=== PATIENT | female | born 1990 | race Two or more races ===

== ENCOUNTER 2019-09-29 11:06 | Emergency (ER) | payer OTHER ==
[2019-09-29 11:21] VITALS: BMI 30.4
[2019-09-29] MEDS ORDERED: SODIUM CHLORIDE 1,000 ML IV STA (11:21)
[2019-09-29] MEDS ORDERED: KETOROLAC TROMETHAMINE 30 MG/1 ML VIAL IVPUSH ONE (11:22)
--- NOTE | 2019-09-29 11:25 | PDOC ---
History of Present Illness - General Chief Complaint: Pain Stated Complaint: BACK PAIN AND PELVIC PAIN FOR 1 WEEK Time Seen by Provider: 09/29/19 11:09 History Source: Patient Exam Limitations: No Limitations - History of Present Illness Travel History: No Initial Comments: 09/29/19 11:22 29 y/o female with lower back and pelvic pain. Patient states pain mostly on let and wraps to the front for last week. No fever, chills, dysuria, hematuria, N/V/d/C. Has been taking OTC medication with no relief. No vaginal discharge. Hurts more with movement. No fall or trauma or lifting. Denies SOB or chest pain. Denies . 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 Tested negative for COVID recently. Patient also takes Iron pills for anemia and stopped recently thinking pain due to her iron pills. 09/29/19 13:38 Past History - Medical History Allergies/Adverse Reactions: Allergies Allergy/AdvReac Type Severity Reaction Status Date / Time No Known Allergies Allergy Unverified 09/29/19 11:09 Home Medications: Ambulatory Orders levoFLOXacin [Levaquin -] 500 mg PO DAILY #7 tablet 09/29/19 Review of Systems - Review of Systems Able to Perform ROS?: Yes Is the patient limited Slovenian proficient: No Constitutional: No: Chills, Fever Respiratory: No: Cough, Shortness of Breath Cardiac (ROS): No: Chest Pain ABD/GI: No: Nausea, Vomiting : Yes: Flank Pain. No: Burning, Dysuria, Hematuria Musculoskeletal: Yes: Back Pain Neurological: No: Headache All Other Systems: Reviewed and Negative *Physical Exam - Physical Exam General Appearance: Yes: Nourished, Appropriately Dressed, Mild Distress. No: Apparent Distress HEENT: positive: EOMI, BHARATI, Normal ENT Inspection, Normal Voice, Pharynx Normal Neck: positive: Trachea midline, Normal Thyroid, Supple. negative: Tender, Rigid Respiratory/Chest: positive: Lungs Clear, Normal Breath Sounds. negative: Chest Tender Cardiovascular: positive: Regular Rhythm, Regular Rate, S1, S2. negative: Edema, JVD, Murmur Vascular Pulses: Femoral (R): 4+, Femoral (L): 4+, Carotid (R): 4+, Carotid (L): 4+, Dorsalis-Pedis (R): 4+, Doralis-Pedis (L): 4+ Female Pelvic Exam: positive: other (pelvic exam refused by pt, risks and benefits discussed with pt) Gastrointestinal/Abdominal: positive: Normal Bowel Sounds, Tender (LLQ tendernes s, no RLQ tenderness +BS, no RUQ or LUQ tenderness) Lymphatic: negative: Adenopathy, Tenderness, Other Musculoskeletal: positive: Normal Inspection. 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 NML intact, Fully Oriented, Alert, Normal Mood/Affect (Neg SLR test b/l strength 5+/5 b/l in LE, no focal deficits noted), Normal Response, Motor Strength 5/5 ED Treatment Course - LABORATORY CBC & Chemistry Diagram: 09/29/19 11:43 09/29/19 11:22 ED Progress Note - Progress Note Progress Note: 09/29/19 11:26 Left flank/abdominal pain will obtain CT abd/pelvis IVF and pain medication with labs Pt in agreement with plan 09/29/19 13:37 Pt feeling better after Toradol Will place on Levaquin daily for 7 days Follow up with STOCK TRANSFER CLERK may need US If worsen return to ER Discharge - Discharge Information Problems reviewed: Yes Clinical Impression/Diagnosis: Adnexal cyst, Infiltrate noted on imaging study Condition: Stable Disposition: HOME - Admission No - Follow up/Referral - Patient Discharge Instructions Patient Printed Discharge Instructions: DI for Ovarian Cyst, DI for Atypical Pneumonia Additional Instructions: Fluids, rest Motrin Levaquin 500mg daily for 7days Follow up with Dairy Farm Supervisor for possible US If worsen return to ER - Post Discharge Activity
[2019-09-29] MEDS ORDERED: KETOROLAC TROMETHAMINE 30 MG/1 ML VIAL ONE (11:41)
[2019-09-29 11:48] LABS: HCG,QUALITATIVE URINE Negative
[2019-09-29 12:09] LABS: BASO % 1.9 % (0-2.0); EOS % 0.6 % (0-4.5); LYMPH % 13.1 % (8-40); MCH 22.7 pg (25.7-33.7); MCHC 32.1 g/dl (32.0-36.0); MEAN CELL VOLUME 70.9 fl (80-96); MEAN PLT VOLUME 7.3 fl (7.5-11.1); MONO % 4.2 % (3.8-10.2); NEUT % 80.2 % (42.8-82.8); RBC 3.95 M/mm3 (3.60-5.2); RDW 17.4 % (11.6-15.6); WHITE BLOOD COUNT 14.7 K/mm3 (4.0-10.8)
[2019-09-29 12:16] LABS: ALBUMIN 2.7 g/dl (3.4-5.0); BILIRUBIN,TOTAL 0.6 mg/dl (0.2-1); CALCIUM 8.9 mg/dl (8.5-10); CREATININE 0.8 mg/dl (0.55-1.3); POTASSIUM 4.5 mmol/L (3.5-5.1); TOT PROT 8.3 g/dl (6.4-8.2)
[2019-09-29 12:16] LABS: PLATELET COUNT 736 K/MM3 (134-434)
[2019-09-29 12:32] LABS: EPITHELIAL CELLS FEW /hpf
[2019-09-29 13:21] VITALS: BP 99/55; PULSE 97; TEMP 98.8
== END 2019-09-29 13:52 | disposition home or self-care (01) ==
LOC: FER 11:06
PROC: 3E033NZ Introduction of Analgesics, Hypnotics, Sedatives into Peripheral Vein, Percutaneous Approach (ICD-10-PCS; principal; 2019-09-29)
PROC: 3E0337Z Introduction of Electrolytic and Water Balance Substance into Peripheral Vein, Percutaneous Approach (ICD-10-PCS; 2019-09-29)
DX: N83.291 Other ovarian cyst, right side (principal)
CPT/HCPCS: 36415; 74176-TC; 80053; 81003; 81015; 84703; 85025; 99285-25

== ENCOUNTER 2021-12-11 09:07 | Emergency (ER) | payer OTHER ==
[2021-12-11 09:25] VITALS: BP 112/75; PULSE 89; RESP 16; TEMP 99.2; BMI 26.5
[2021-12-11 09:43] LABS: EPITHELIAL CELLS MANY /hpf
[2021-12-11] MEDS ORDERED: ACETAMINOPHEN 325 MG TABLET (FP) PO ONE (09:57)
[2021-12-11] MEDS ORDERED: ACETAMINOPHEN 325 MG TABLET (FP) ONE (09:59)
[2021-12-11 10:00] LABS: HEMATOCRIT 35.3 % (32.4-45.2); MCH 27.2 pg (25.7-33.7); MCHC 34.1 g/dl (32.0-36.0); MEAN CELL VOLUME 79.9 fl (80-96); MEAN PLT VOLUME 7.5 fl (7.5-11.1); PLATELET COUNT 388.7 10^3/uL (134-434); RBC 4.42 10^6/uL (3.60-5.2); RDW 18.1 % (11.6-15.6); WHITE BLOOD COUNT 9.1 10^3/uL (4.0-10.8)
[2021-12-11 10:05] LABS: PLATELET ESTIMATE ADEQUATE
[2021-12-11 10:07] LABS: ALBUMIN 3.1 g/dl (3.4-5.0); BILIRUBIN,TOTAL 0.7 mg/dl (0.2-1); CALCIUM 8.9 mg/dl (8.5-10); CREATININE 0.7 mg/dl (0.55-1.3)
[2021-12-11 10:49] LABS: EPITHELIAL CELLS MODERATE /hpf
== END 2021-12-11 12:08 | disposition home or self-care (01) ==
LOC: FER 09:07
DX: R10.11 Right upper quadrant pain (principal)
CPT/HCPCS: 36415; 71046-TC-FY; 76700-TC; 80053; 81003; 81015; 85025; 87086; 99284-25

== ENCOUNTER 2022-04-25 09:10 | Emergency (ER) | payer OTHER ==
[2022-04-25 09:15] VITALS: BP 120/78; PULSE 85; RESP 18; TEMP 99; BMI 25.1
[2022-04-25] MEDS ORDERED: ONDANSETRON 4 MG/2 ML VIAL IVPUSH ONE (09:21)
[2022-04-25] MEDS ORDERED: LACTATED RINGERS SOLUTION 1000 ML INFUS.BAG IV ONE (09:21)
[2022-04-25] MEDS ORDERED: MAG HYDROX/AL HYDROX/SIMETH 30 ML UNIT-DOSE CUP PO ONE (09:21)
[2022-04-25] MEDS ORDERED: ONDANSETRON 4 MG/2 ML VIAL ONE (09:30)
[2022-04-25] MEDS ORDERED: FAMOTIDINE 20 MG/50 ML IVPB 20 MG/50 ML MG IVPB ONE ×2 (09:30)
[2022-04-25] MEDS ORDERED: MAG HYDROX/AL HYDROX/SIMETH 30 ML UNIT-DOSE CUP ONE (09:31)
[2022-04-25 10:01] LABS: HCG,QUALITATIVE URINE Negative
[2022-04-25 10:03] LABS: HEMOGLOBIN 11.6 G/dL (10.7-15.3); MCH 28.3 pg (25.7-33.7); MCHC 34.1 g/dl (32.0-36.0); MEAN CELL VOLUME 82.9 fl (80-96); MEAN PLT VOLUME 8.1 fl (7.5-11.1); PLATELET COUNT 326.1 10^3/uL (134-434); RDW 16.9 % (11.6-15.6); WHITE BLOOD COUNT 9.4 10^3/uL (4.0-10.8)
[2022-04-25 10:08] LABS: ALBUMIN 3.2 g/dl (3.4-5.0); BILIRUBIN,TOTAL 0.8 mg/dl (0.2-1); CALCIUM 8.7 mg/dl (8.5-10); CREATININE 0.8 mg/dl (0.55-1.3); TOT PROT 7.5 g/dl (6.4-8.2)
[2022-04-25 11:56] LABS: ANISOCYTOSIS 1+
[2022-04-25 12:00] LABS: PLATELET ESTIMATE ADEQUATE
[2022-04-25 12:02] LABS: EPITHELIAL CELLS FEW /hpf
== END 2022-04-25 11:15 | disposition home or self-care (01) ==
LOC: FER 09:10
PROC: 3E033GC Introduction of Other Therapeutic Substance into Peripheral Vein, Percutaneous Approach (ICD-10-PCS; principal; 2022-04-25)
DX: R10.13 Epigastric pain (principal)
CPT/HCPCS: 36415; 80053; 81003; 81015; 84703; 85027; 99284-25